=== PATIENT | male | born 1975 | race Caucasian/White ===

== ENCOUNTER 2020-07-04 01:22 | Emergency (ER) | payer SELFPAY ==
[2020-07-04] MEDS ORDERED: LODINE CAP 300300 MG PO (04:52)
[2020-07-04] MEDS ORDERED: BACTRIM DS TAB1 EACH PO (04:52)
[2020-07-04] MEDS ORDERED: CEPHALEXIN500 MG PO (04:52)
== END 2020-07-04 05:05 | disposition home or self-care (01) ==
LOC: ER1 01:22
DX: L02.31 Cutaneous abscess of buttock (principal); L03.317 Cellulitis of buttock; F17.210 Nicotine dependence, cigarettes, uncomplicated
CPT/HCPCS: 10060; 99283